=== PATIENT | female | born 2000 | race Caucasian/White ===

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

== ENCOUNTER → 2022-07-10 | Outpatient (CLI) | payer OTHER ==
--- NOTE | 2022-07-10 14:06 | US ---
EXAMINATION TYPE: Transabdominal DATE OF EXAM: 07/10/2022 1:39 PM COMPARISON: NONE CLINICAL HISTORY: Z36.89 ENCOUNTER FOR OTHER SPECIFIED SCREENING. confirm dates EXAM PERFORMED: Transabdominal (TA) EXAM MEASUREMENTS: GESTATIONAL AGE / DATING Physician Established: Not yet established Dates by LMP: (13 weeks/2 days) EDC: 01/13/2023 Dates by First Scan: No previous this is first scan Dates by Current Scan for: (13 weeks/2 days) EDC: 01/13/2023 MATERNAL ANATOMY Uterus: 12.5 x 8.2 x 8.7 cm Right Ovary: 2.5 x 3.0 x 2.0 cm Left Ovary: Obscured by bowel gas. Post CDS / Adnexa: wnl Presence of free fluid: no Presence of corpus luteal cyst: no Presence of subchorionic bleed: no GESTATION / SURVEY CRL: 7.09 cm (13 weeks/2 days) Heart Rate: 161 bpm Rhythm: Normal IUP: Viable IUP IMPRESSION: Single viable intrauterine .
== END | disposition home or self-care (01) ==
LOC: RADUSWWP 13:21
PROVIDERS: ATTEND Obstetrics & Gynecology
DX: Z36.89 Encounter for other specified antenatal screening (principal); Z3A.13 13 weeks gestation of pregnancy
CPT/HCPCS: 76801

== ENCOUNTER 2023-01-10 21:45 | Inpatient (IN) | payer OTHER ==
[2023-01-11 01:01] LABS: Anisocytosis Slight; Basophils # (A) 0.1 k/uL (0-0.2); Basophils % (A) 0 %; Eosinophils # (A) 0.5 k/uL (0-0.7); Eosinophils % (A) 4 %; HCT 33.9 % (34.0-46.0); HGB 11.4 gm/dL (11.4-16.0); Hypochromasia Slight; Lymphocytes # (A) 3.5 k/uL (1.0-4.8); Lymphocytes % (A) 24 %; MCHC 33.6 g/dL (31.0-37.0); MCV 77.4 fL (80.0-100.0); Mean Platelet Volume 7.8; Microcytosis Slight; Monocytes # (A) 0.8 k/uL (0-1.0); Monocytes % (A) 5 %; Neutrophils # (A) 9.4 k/uL (1.3-7.7); Neutrophils % (A) 64 %; Platelet Count 240 k/uL (150-450); RBC 4.38 m/uL (3.80-5.40); RDW 16.4 % (11.5-15.5); WBC 14.5 k/uL (3.8-10.6)
--- NOTE | 2023-01-11 09:33 | P.HPOB ---
History of Present Illness H&P Date: 01/11/23 Chief Complaint: labor 22 year old at 39 weeks 5 days with painful regular contractions. Her cervix did change from 3/60/-2 to 4/80/-2. She is risa every 2-8 minutes. heart tones 135 with moderate variability and reactive. Review of Systems All systems: negative Constitutional: Denies chills, Denies fever Eyes: denies blurred vision, denies pain Ears, nose, mouth and throat: Denies headache, Denies sore throat Cardiovascular: Denies chest pain, Denies shortness of breath Respiratory: Denies cough Gastrointestinal: Denies abdominal pain, Denies diarrhea, Denies nausea, Denies vomiting Genitourinary: Denies dysuria, Denies hematuria Musculoskeletal: Denies myalgias Integumentary: Denies pruritus, Denies rash Neurological: Denies numbness, Denies weakness Psychiatric: Denies anxiety, Denies depression Endocrine: Denies fatigue, Denies weight change Past Medical History Past Medical History: Asthma History of Any Multi-Drug Resistant Organisms: None Reported Past Surgical History: Adenoidectomy, Tonsillectomy Past Anesthesia/Blood Transfusion Reactions: Motion Sickness Past Psychological History: No Psychological Hx Reported Smoking Status: Never smoker Past Alcohol Use History: None Reported Additional Past Alcohol Use History / Comment(s): Quit smoking 1 yr ago. Past Drug Use History: None Reported - Past Family History Mother Family Medical History: Hypertension Medications and Allergies Home Medications Medication Instructions Recorded Confirmed Type Albuterol Inhaler [Ventolin Hfa 1 - 2 puff INHALATION RT-Q6H PRN 12/21/16 01/10/23 History Inhaler] Allergies Allergy/AdvReac Type Severity Reaction Status Date / Time No Known Allergies Allergy Verified 04/15/19 12:17 Exam Osteopathic Statement: *. No significant issues noted on an osteopathic structural exam other than those noted in the History and Physical/Consult. Vital Signs Temp Pulse Resp BP Pulse Ox 01/10/23 23:52 96.8 F L 85 16 120/73 98 01/10/23 21:51 98.2 F 97 16 115/62 97 Intake and Output 01/10/23 01/11/23 01/11/23 22:59 06:59 14:59 Other: Weight 116.12 kg 116.12 kg Heart: Regular rate and rhythm Lungs: Clear to auscultation bilaterally Abdomen: Soft, nontender Extremities: Negative Homans sign Results Result Diagrams: 01/11/23 00:35 Abnormal Lab Results - Last 24 Hours (Table) 01/11/23 Range/Units 00:35 WBC 14.5 H (3.8-10.6) k/uL Hct 33.9 L (34.0-46.0) % MCV 77.4 L (80.0-100.0) fL RDW 16.4 H (11.5-15.5) % Neutrophils # 9.4 H (1.3-7.7) k/uL Assessment and Plan (1) Normal labor Current Visit: Yes Status: Acute Code(s): O80 - ENCOUNTER FOR FULL-TERM UNCOMPLICATED DELIVERY; Z37.9 - OUTCOME OF DELIVERY, UNSPECIFIED SNOMED Code(s): 09278655 Plan: 1. expectant management with pitocin augmentation if necessary. 2. anticipate normal vaginal delivery
[2023-01-11] MEDS ORDERED: miSOPROStoL 200 MCG TAB PO PRN (11:14)
[2023-01-11] MEDS ORDERED: TERBUTALINE 1 MG/ML VIAL SQ PRN (11:14)
[2023-01-11] MEDS ORDERED: CARBOPROST TROMETHAMINE 250 MCG/ML 1 ML AMP IM PRN (11:14)
[2023-01-11] MEDS ORDERED: OXYTOCIN 10 UNIT/ML 1 ML VIAL IM PRN (11:14)
[2023-01-11] MEDS ORDERED: METHYLERGONOVINE 0.2 MG/ML 1 ML AMP IM PRN (11:14)
[2023-01-11] MEDS ORDERED: LIDOCAINE 0.5% (PF) 5 MG/ML (50 ML SDV) SQ PRN (11:14)
[2023-01-11] MEDS ORDERED: TRANEXAMIC 1,000 MG/100ML-NACL 1,000 MG in EMPTY BAG 1 BAG IV PRN (11:14)
[2023-01-11] MEDS ORDERED: OXYTOCIN 30 UNITS/500 ML NS 30 UNIT in SALINE 1 500ML.BAG IV SCH ×2 (11:15→17:15)
[2023-01-11] MEDS ORDERED: LACTATED RINGERS 1,000 ML IV SCH (11:15)
[2023-01-11] MEDS ORDERED: NALBUPHINE 10 MG/ML (10 ML MDV) IV PRN (12:50)
[2023-01-11] MEDS ORDERED: fentaNYL (PF) 50 MCG/ML 5 ML AMP ONE (16:29)
[2023-01-11] MEDS ORDERED: SODIUM CHLORIDE 0.9% 100 ML BAG ONE (16:29)
[2023-01-11] MEDS ORDERED: ROPIVACAINE 5 MG/ML 20 ML AMPULE ONE (16:29)
[2023-01-11] MEDS ORDERED: BENZOCAINE/MENTHOL SPRAY 1 GM/SPRAY AEROSOL TOPICAL PRN (17:13)
[2023-01-11] MEDS ORDERED: HYDROCORTISONE 2.5% RECTAL CREAM 30 GM TUBE RECTAL PRN (17:13)
[2023-01-11] MEDS ORDERED: diphenhydrAMINE 50 MG/ML 1 ML VIAL IVP PRN ×2 (17:13)
[2023-01-11] MEDS ORDERED: diphenhydrAMINE 25 MG CAP PO PRN (17:13)
[2023-01-11] MEDS ORDERED: ACETAMINOPHEN TAB 325 MG TAB PO PRN (17:13)
[2023-01-11] MEDS ORDERED: ZOLPIDEM 5 MG TAB PO PRN (17:13)
[2023-01-11] MEDS ORDERED: LANOLIN CREAM 5 GM TUBE TOPICAL PRN (17:13)
[2023-01-11] MEDS ORDERED: diphenhydrAMINE 50 MG CAP PO PRN (17:13)
[2023-01-11] MEDS ORDERED: IBUPROFEN 600 MG TAB PO PRN (17:13)
[2023-01-11] MEDS ORDERED: SIMETHICONE 80 MG CHEWABLE PO PRN (17:13)
--- NOTE | 2023-01-11 17:16 | P.PROBDLV ---
Vaginal Delivery Note - . Vaginal Delivery Note: 22 year old at 39 weeks 5 days with painful regular contractions. Her cervix did change from 3/60/-2 to 4/80/-2. She is risa every 2-8 minutes. heart tones 135 with moderate variability and reactive. Patient is admitted to [facility]. She didn't change for several hours so amniotomy was performed at 9:10 AM and clear fluid noted. She did change to 6-7 cm but then started up again so Pitocin augmentation was started. When she was uncomfortable she got an epidural and was completely dilated by 1655. She pushed, delivered a viable female infant over intact perineum under epidural anesthesia at 1702. Head delivered OA, anterior shoulder delivered gentle downward guidance followed by posterior shoulder and rest of body. Nose and mouth bulb suctioned, cord clamped and cut, infant placed mother's abdomen. Apgars 9, 9, weight pending. Placenta delivered spontaneously, intact with three-vessel cord at 1704. Vagina, cervix, perineum inspected. First-degree midline laceration was repaired with 3-0 Vicryl. Estimated blood loss 300 mL. Mother and baby in stable condition.
[2023-01-11] MEDS: IBUPROFEN ORAL SUSP 2,400 MG/120 ML BOTTLE PO PRN (18:17)
[2023-01-11] MEDS ORDERED: SENNOSIDES-DOCUSATE SODIUM 1 EACH TAB PO SCH (20:00)
[2023-01-11 20:10] VITALS: RESP 16
[2023-01-12] MEDS: IBUPROFEN ORAL SUSP 2,400 MG/120 ML BOTTLE PO PRN ×2 (03:53→11:00)
[2023-01-12 03:57] VITALS: PULSE 84
[2023-01-12 07:39] LABS: Anisocytosis Slight; Basophils # (A) 0.1 k/uL (0-0.2); Basophils % (A) 0 %; Eosinophils # (A) 0.2 k/uL (0-0.7); Eosinophils % (A) 1 %; HCT 30.1 % (34.0-46.0); Hypochromasia Slight; Lymphocytes % (A) 23 %; MCHC 33.2 g/dL (31.0-37.0); MCV 78.1 fL (80.0-100.0); Mean Platelet Volume 8.2; Microcytosis Slight; Monocytes % (A) 6 %; Neutrophils # (A) 11.6 k/uL (1.3-7.7); Neutrophils % (A) 68 %; Platelet Count 183 k/uL (150-450); RBC 3.85 m/uL (3.80-5.40); RDW 16.4 % (11.5-15.5); WBC 17.1 k/uL (3.8-10.6)
--- NOTE | 2023-01-12 08:58 | P.DS ---
Providers Date of admission: 01/10/23 23:05 Expected date of discharge: 01/12/23 Attending physician: Princess Cordova Primary care physician: Stated None - Discharge Diagnosis(es) (1) Normal labor Current Visit: Yes Status: Resolved (2) Normal vaginal delivery Current Visit: Yes Status: Acute Hospital Course: Patient presented in labor. She underwent a normal vaginal delivery with Pitocin augmentation. Post course has been uneventful. She denies nausea, vomiting, chest pain, shortness of breath or calf pain. Patient will be discharged home day #1 in stable condition to follow-up with epidural in 6 weeks. Plan - Discharge Summary New Discharge Prescriptions: New Ibuprofen [Motrin] 600 mg PO Q6HR PRN #30 tab PRN Reason: Mild Pain Or Fever >= 100.5 No Action Albuterol Inhaler [Ventolin Hfa Inhaler] 1 - 2 puff INHALATION RT-Q6H PRN PRN Reason: Shortness Of Breath Discharge Medication List Albuterol Inhaler [Ventolin Hfa Inhaler] 1 - 2 puff INHALATION RT-Q6H PRN 12/21/16 [History] Ibuprofen [Motrin] 600 mg PO Q6HR PRN #30 tab 01/12/23 [Rx] Follow up Appointment(s)/Referral(s): Princess Cordova DO [Doctor of Osteopathic Medicine] - 6 Weeks Discharge Disposition: HOME SELF-CARE
[2023-01-12 16:47] VITALS: BP 111/74; TEMP 98.2
== END 2023-01-12 18:18 | disposition home or self-care (01) | DRG 560 ==
LOC: FBPOP 21:45 → 4FBP 23:05
PROVIDERS: ADMIT Obstetrics & Gynecology; ATTEND Obstetrics & Gynecology
PROC: 10E0XZZ Delivery of Products of Conception, External Approach (ICD-10-PCS; principal; 2023-01-11)
PROC: 0HQ9XZZ Repair Perineum Skin, External Approach (ICD-10-PCS; 2023-01-11)
DX: O99.52 Diseases of the respiratory system complicating childbirth (principal); O70.0 First degree perineal laceration during delivery; J45.909 Unspecified asthma, uncomplicated; Z37.0 Single live birth; Z3A.39 39 weeks gestation of pregnancy
CPT/HCPCS: 59025; 84112; 85025; 86850; 86900; 86901; 99213

== ENCOUNTER 2024-10-19 20:35 | Emergency (ER) | payer OTHER ==
[2024-10-19 20:52] VITALS: RESP 18; TEMP 98.1
--- NOTE | 2024-10-19 22:13 | ED ---
General Adult HPI - General Chief complaint: ENT Stated complaint: Foreign Object in throat Time Seen by Provider: 10/19/24 21:20 Source: patient, RN notes reviewed, old records reviewed Mode of arrival: ambulatory Limitations: no limitations - History of Present Illness Initial comments: 24-year-old female with suspected esophageal food impaction. Patient states she was eating steak, felt that a piece of steak got lodged in her throat. No difficulty breathing. She has been spitting her saliva since the incident. This occurred just prior to arrival. She has had this several times in the past and has had a barium swallow, she denies previous history of endoscopy. - Related Data Home Medications Medication Instructions Recorded Confirmed Albuterol Inhaler [Ventolin Hfa 1 - 2 puff INHALATION RT-Q6H PRN 12/21/16 01/10/23 Inhaler] Previous Rx's Medication Instructions Recorded Ibuprofen [Motrin] 600 mg PO Q6HR PRN #30 tab 01/12/23 Allergies Allergy/AdvReac Type Severity Reaction Status Date / Time No Known Allergies Allergy Verified 10/19/24 20:52 Review of Systems ROS Statement: Those systems with pertinent positive or pertinent negative responses have been documented in the HPI. ROS Other: All systems not noted in ROS Statement are negative. Past Medical History Past Medical History: Asthma History of Any Multi-Drug Resistant Organisms: None Reported Past Surgical History: Adenoidectomy, Tonsillectomy Past Anesthesia/Blood Transfusion Reactions: Motion Sickness Past Psychological History: No Psychological Hx Reported Smoking Status: Never smoker Past Alcohol Use History: None Reported Past Drug Use History: None Reported - Past Family History Mother Family Medical History: Hypertension General Exam Limitations: no limitations General appearance: alert, in no apparent distress Head exam: Present: atraumatic, normocephalic Eye exam: Present: normal appearance, PERRL ENT exam: Present: normal exam Neck exam: Present: normal inspection. Absent: tenderness, meningismus Respiratory exam: Present: normal lung sounds bilaterally. Absent: respiratory distress, wheezes, stridor Cardiovascular Exam: Present: regular rate, normal rhythm GI/Abdominal exam: Present: soft. Absent: distended, tenderness, guarding Neurological exam: Present: alert, oriented X3 Psychiatric exam: Present: normal affect, normal mood Skin exam: Present: warm, dry, intact. Absent: cyanosis, diaphoretic Course Vital Signs 10/19/24 10/19/24 20:50 21:33 Temperature 98.1 F Pulse Rate 99 Respiratory 18 18 Rate Blood Pressure 101/69 O2 Sat by Pulse 95 Oximetry Medical Decision Making - Medical Decision Making Was pt. sent in by a medical professional or institution (, [facility], [employer], urgent care, hospital, or penitentiary...) When possible be specific @ -No Did you speak to anyone other than the patient for history (EMS, parent, family, police, friend...)? What history was obtained from this source @ -No Did you review nursing and triage notes (agree or disagree)? Why? @ -I reviewed and agree with nursing and triage notes Were old charts reviewed (outside hosp., previous admission, EMS record, old EKG, old radiological studies, urgent care reports/EKG's, penitentiary records)? Report findings @ -No old charts were reviewed Differential Diagnosis : Esophageal food impaction, airway obstruction, esophageal stricture esophageal mass EKG interpreted by me (3pts min.). @ -As above X-rays interpreted by me (1pt min.). @ -None done CT interpreted by me (1pt min.). @ -None done U/S interpreted by me (1pt. min.). @ -None done What testing was considered but not performed or refused? (CT, X-rays, U/S, labs)? Why? @ -None What meds were considered but not given or refused? Why? @ -None Did you discuss the management of the patient with other professionals (professionals i.e. , [facility], [employer], lab, RT, psych nurse, social media marketer, director of medical staff services, teacher, strike operations officer, caseworker intake)? Give summary @ -No Was smoking cessation discussed for >3mins.? @ -No Was critical care preformed (if so, how long)? @ -No Were there social determinants of health that impacted care today? How? (Homelessness, low income, unemployed, alcoholism, drug addiction, transportation, low edu. Level, literacy, decrease access to med. care, nursing home, rehab)? @ -No Was there de-escalation of care discussed even if they declined (Discuss DNR or withdrawal of care, Hospice)? DNR status @ -No What co-morbidities impacted this encounter? (DM, HTN, Smoking, COPD, CAD, Cancer, CVA, ARF, Chemo, Hep., AIDS, mental health diagnosis, sleep apnea, morbid obesity)? @ -None Was patient admitted / discharged? Hospital course, mention meds given and route, prescriptions, significant lab abnormalities, going to OR and other pertinent info. @ -Patient is able to pass the suspected food bolus with soda pop. She is informed that she should follow with gastroenterology given the recurrence of this issue. Undiagnosed new problem with uncertain prognosis? @ -No Drug Therapy requiring intensive monitoring for toxicity (Heparin, Nitro, Insulin, Cardizem)? @ -No Were any procedures done? @ -No Diagnosis/symptom? @Esophageal food impaction Acute, or Chronic, or Acute on Chronic? @ -Acute Uncomplicated (without systemic symptoms) or Complicated (systemic symptoms)? @ -Default Side effects of treatment? @ -No Exacerbation, Progression, or Severe Exacerbation? @ -No Poses a threat to life or bodily function? How? (Chest pain, [place], [place], pneumonia, PE, COPD, DKA, ARF, appy, cholecystitis, CVA, Diverticulitis, Homicidal, Suicidal, threat to staff... and all critical care pts) @ -No Disposition Clinical Impression: Food impaction of esophagus Disposition: HOME SELF-CARE Condition: Good Instructions (If sedation given, give patient instructions): Esophageal Foreign Body (ED) Is patient prescribed a controlled substance at d/c from ED?: No Referrals: Tristan Del Cid MD [Primary Care Provider] - 1-2 days Nimco Rodríguez MD [STAFF PHYSICIAN] - 1-2 days Time of Disposition: 22:23
[2024-10-19 22:34] VITALS: BP 132/83; PULSE 87
== END 2024-10-19 22:34 | disposition home or self-care (01) ==
LOC: EC 20:35
DX: T18.128A Food in esophagus causing other injury, initial encounter (principal); W44.F3XA Food entering into or through a natural orifice, initial encounter
CPT/HCPCS: 99283